=== PATIENT | female | born 1990 ===

== ENCOUNTER 2017-01-27 17:13 | Emergency (ER) | payer OTHER ==
[2017-01-27 17:31] VITALS: RESP 18
[2017-01-27] MEDS ORDERED: Sodium Chloride 0.9% 1,000 ML IV ONE (17:38)
--- NOTE | 2017-01-27 17:40 | C.PDOC ---
History Of Present Illness 26 yo female, presents with right flank pain she has "had for several months". pt was seen in er, had a non obstucted renal stone on ct. pt states she has had persistent pain. no fevers, no hematuria, no vb, no other complaints. Time Seen by Provider: 01/27/17 17:33 Chief Complaint (Nursing): Back Pain Past Medical History Reviewed: Historical Data, Nursing Documentation, Vital Signs Vital Signs: Last Vital Signs Temp 98.4 F 01/27/17 20:02 Pulse 81 01/27/17 20:02 Resp 18 01/27/17 20:02 BP 97/56 L 01/27/17 20:02 Pulse Ox 95 01/27/17 20:20 - Medical History PMH: Kidney Stones Family History: States: Unknown Family Hx - Social History Hx Alcohol Use: No Hx Substance Use: No - Immunization History Hx Tetanus Toxoid Vaccination: No Hx Influenza Vaccination: No Hx Pneumococcal Vaccination: No Review Of Systems Gastrointestinal: Positive for: Abdominal Pain Physical Exam - Physical Exam Appears: Well, No Acute Distress Skin: Normal Color, Warm, Dry Eye(s): bilateral: Normal Inspection, PERRL, EOMI Nose: Normal Throat: Normal Neck: Normal Cardiovascular: Rhythm Regular Respiratory: Normal Breath Sounds Gastrointestinal/Abdominal: Normal Exam, Soft, Tenderness ((+)mild right flank) , No Guarding, No Rebound Back: Normal Inspection Extremity: Normal ROM ED Course And Treatment - Laboratory Results Result Diagrams: 01/27/17 18:01 01/27/17 18:01 O2 Sat by Pulse Oximetry: 95 Medical Decision Making Medical Decision Making: EXAM: CT Abdomen and Pelvis Without Intravenous Contrast CLINICAL HISTORY: 26 years old, female; Pain; Abdominal pain; Flank; Right lower quadrant (rlq); Additional info: Right flank pain TECHNIQUE: Axial computed tomography images of the abdomen and pelvis without intravenous contrast. This CT exam was performed using one or more of the following dose reduction techniques: automated exposure control, adjustment of the mA and/or kV according to patient size, and/ or use of iterative reconstruction technique. Coronal and sagittal reformatted images were created and reviewed. COMPARISON: No relevant prior studies available. FINDINGS: Lower thorax: Bilateral breast implants in place. ABDOMEN: Liver: Unremarkable. No suspicious lesions are seen. Gallbladder and bile ducts: Unremarkable. No calcified stones. No ductal dilation. No significant wall thickening. Pancreas: Unremarkable. No ductal dilation. Spleen: Unremarkable. No splenomegaly. Adrenals: Unremarkable. No mass. Kidneys and ureters: Bilateral nonobstructing renal stones. Mild pelvocaliectasis of the right kidney without definite obstructing calculus. The right distal ureter is not well seen. KENZIE HERMOSILLO | Preliminary Radiology Report SUPPLIER QUALITY MANAGER (QA) DISCREPANCY? If there is a discrepancy between the preliminary and final interpretation, please notify [facility] via [email or web address]. If you do not have access to our QA portal, call our QA team at [phone] CONFIDENTIALITY STATEMENT This report is intended only for the use of the referring physician, and only in accordance with law, If you received this in error, call [phone] Page 2 of 2 Stomach and bowel: CT bowel toMotion artifact does moderately limit the sensitivity of this examination. Moderate amount of formed fecal material is seen within the large bowel loops which may be associated with constipation. No mucosal thickening. Appendix: A normal appendix is identified. PELVIS: Bladder: Unremarkable. No stones. Reproductive: Bilateral prominent ovaries containing small follicles without masses. The uterus is normal. ABDOMEN and PELVIS: Intraperitoneal space: Unremarkable. No free air. No significant fluid collection. Bones/joints: No acute fracture. No dislocation. Soft tissues: Numerous partially calcific nodular densities consistent injection granulomas in the buttocks. Vasculature: Unremarkable. No abdominal aortic aneurysm. Lymph nodes: Unremarkable. No enlarged lymph nodes. IMPRESSION: Bilateral nephrolithiasis without a definite obstructing stone. Mild right pelvocaliectasis and prominence of the right proximal ureter, which is either physiologic, or related to a recently passed stone. No left and stone in the visualized right ureter or in the bladder. No evidence for bowel herniation, bowel obstruction, colitis, appendicitis or diverticulitis. 800: discussed results in detail with patient. no e/o of obstructing stone. advsed pt to f/u oupt with urology. spoke using supervisor matrix. pt states pain improved. advise outpt f/u and return precautions. Disposition - Disposition Referrals: [facility] [Outside] [facility] [Outside] Tee Thomason MD [Staff Provider] - Disposition: HOME/ ROUTINE Disposition Time: 08:00 Condition: STABLE Additional Instructions: please see specialist. reutnr ot er with worsening symptoms or concerns. please follow up in clinic. Prescriptions: Ibuprofen [Motrin Tab] 600 mg PO Q6 PRN #20 tab PRN Reason: Pain, Mild (1-3) Tamsulosin [Flomax] 0.4 mg PO DAILY #10 cap Instructions: Kidney Stones (ED), Flank Pain (ED) Print Language: WOLOF - Clinical Impression Clinical Impression: Flank pain, Kidney stone
[2017-01-27 18:07] LABS: BASO % 0.6 % (0.0-2.0); EOS # 0.1 K/uL (0.0-0.7); EOS % 0.8 % (0.0-4.0); HEMOGLOBIN 13.2 g/dL (11.0-16.0); LYMPH # 1.7 K/uL (1.0-4.3); LYMPH % 24.7 % (20.0-40.0); MEAN CELL VOLUME 93.1 fL (81.0-99.0); MEAN CORPUSCULAR HEMOGLOBIN 31.2 pg (27.0-31.0); MEAN CORPUSCULAR HGB CONC 33.5 g/dL (33.0-37.0); MEAN PLATELET VOLUME 8.5 fL (7.2-11.7); MONO # 0.4 K/uL (0.0-0.8); MONO % 5.2 % (0.0-10.0); NEUT # 4.7 K/uL (1.8-7.0); NEUT % 68.7 % (50.0-75.0); RBC 4.25 Mil/uL (3.80-5.20); RED CELL DISTRIBUTION WIDTH 12.9 % (11.5-14.5); WHITE BLOOD COUNT 6.8 K/uL (4.8-10.8)
[2017-01-27 18:16] LABS: ALBUMIN 3.9 g/dL (3.5-5.0); PROTHROMBIN TIME 11.7 SECONDS (9.7-12.2)
[2017-01-27 18:19] LABS: AST/SGOT 25 U/L (14-36); GFR AFRICAN-AMERICAN > 60; GFR NON-AFRICAN AMERICAN > 60
[2017-01-27 18:20] LABS: ALB/GLOB RATIO 1.2 (1.0-2.1); ALT/SGPT 25 U/L (9-52); BLOOD UREA NITROGEN 13 mg/dL (7-17); CALCIUM 9.1 mg/dl (8.6-10.4); LIPASE 88 U/L (23-300)
[2017-01-27 18:42] LABS: HCG,QUALITATIVE URINE NEGATIVE (NEGATIVE)
[2017-01-27 18:43] LABS: SQUAMOUS EPITHIAL 6 /hpf (0-5); URINE BILIRUBIN NEGATIVE (NEGATIVE); URINE CLARITY Clear (Clear); URINE COLOR Yellow (YELLOW); URINE GLUCOSE (UA) NORMAL (Normal); URINE LEUKOCYTE ESTERASE NEG Leu/uL (Negative); URINE NITRATE NEGATIVE (NEGATIVE); URINE PROTEIN NEGATIVE (NEGATIVE); URINE UROBILINOGEN NORMAL mg/dL (0.2-1.0)
[2017-01-27 19:06] LABS: URINE BLOOD SMALL (NEGATIVE)
[2017-01-27 20:03] VITALS: BP 97/56; PULSE 81; TEMP 98.4
[2017-01-27 20:20] VITALS: O2SAT 95
--- NOTE | 2017-01-28 08:07 | CT ---
PROCEDURE: CT Abdomen and Pelvis without intravenous contrast HISTORY: right flank pain COMPARISON: None. TECHNIQUE: Multiple contiguous axial images were performed through the abdomen and pelvis without the use of intravenous contrast. Subsequently, sagittal and coronal reformatted images were obtained. Radiation dose: Total exam DLP = 286 mGy-cm. This CT exam was performed using one or more of the following dose reduction techniques: Automated exposure control, adjustment of the mA and/or kV according to patient size, and/or use of iterative reconstruction technique. FINDINGS: LOWER THORAX: Bilateral breast implants in place. Small calcified granuloma at the left lung base. LIVER: Unremarkable. No gross lesion or ductal dilatation. GALLBLADDER AND BILE DUCTS: Unremarkable. PANCREAS: Unremarkable. No gross lesion or ductal dilatation. SPLEEN: Unremarkable. ADRENALS: Unremarkable. No mass. KIDNEYS AND URETERS: Bilateral renal calculi. For example in the upper pole of the right kidney there is a 3 millimeter calculus and in the lower pole of the right kidney there is an additional 4 millimeter lower pole calculus. Mild pelvocaliectasis of the right kidney without definite obstructing calculus. Right distal ureter is not well seen. VASCULATURE: Unremarkable. No aortic aneurysm. BOWEL: Motion artifact limits evaluation of the bowel. Moderate fecal retention in the colon within the large bowel loops which may represent constipation. APPENDIX: Unremarkable. Normal appendix. PERITONEUM: Unremarkable. No free fluid. No free air. LYMPH NODES: Unremarkable. No enlarged lymph nodes. BLADDER: Unremarkable. REPRODUCTIVE: Prominence of the bilateral adnexa. BONES: No acute fracture. OTHER FINDINGS: Numerous partially calcific nodular densities suggestive for injection granulomas in the buttocks. IMPRESSION: Bilateral nephrolithiasis. Mild right renal pelvocaliectasis and prominence of the right proximal ureter which is either physiologic or related to a recently passed calculus. Fecal retention in the colon suggestive for constipation. These findings were preliminarily reported at 7:45 p.m. on 01/27/[address] Tim Diaz from [employer].
== END 2017-01-27 20:03 | disposition home or self-care (01) ==
LOC: C.ER 17:13
DX: N20.0 Calculus of kidney (principal)
CPT/HCPCS: 74176; 80053; 81001; 83690; 84703; 85025; 85610; 85730; 96360; 99283; J7040

== ENCOUNTER 2017-05-18 08:42 | Day surgery (SDC) | payer OTHER ==
[2017-05-18 09:00] VITALS: BMI 22.6
[2017-05-18] MEDS ORDERED: cefTRIAXone IV 1 gm in Dextros 50 ML IVPB ONE (10:10)
[2017-05-18] MEDS ORDERED: Lactated Ringer's 1,000 ML IV ONE ×2 (11:15→11:44)
[2017-05-18] MEDS ORDERED: Midazolam 2 MG/2 ML VIAL ONE (11:18)
[2017-05-18] MEDS ORDERED: Propofol 10 mg/ml Inj (20 ML) ONE (11:18)
[2017-05-18] MEDS ORDERED: HYDROmorphone 0.5 mg/0.5 ml ISec IVP PRN (11:47)
[2017-05-18 12:11] VITALS: O2SAT 100
[2017-05-18] MEDS ORDERED: Gentamicin 80 mg in 0.9% NS 80 MG/100 ML BAG IVPB SCH (12:30)
[2017-05-18 13:30] VITALS: BP 123/70; PULSE 69; RESP 18; TEMP 97
--- NOTE | 2017-05-18 17:08 | RAD ---
PROCEDURE: HISTORY: COMPARISON: TECHNIQUE: Total fluoroscopic time utilized during the procedure: 17 seconds. Total dose 0.99567 mGy cm squared FINDINGS: Submitted images from the current procedure: 7 Please refer to the physician's notes performing the procedure. IMPRESSION: Less than 1 hour fluoroscopic time utilized during performance of the procedure
--- NOTE | 2017-05-18 23:47 | OP ---
UROLOGY OPERATIVE REPORT PROCEDURE DATE: 05/18/2017 PREOPERATIVE DIAGNOSES: Urolithiasis; hematuria; flank pain, intermittent; and renal colic. POSTOPERATIVE DIAGNOSES: Urolithiasis; hematuria; flank pain, intermittent; renal colic; and possible cystitis. PROCEDURES: Exam under anesthesia, cystoscopy, right retrograde pyelogram, right double-J stent insertion. ESTIMATED BLOOD LOSS: Less than 10 mL. COMPLICATIONS: No complications. Left double-J stent in. FINDINGS: Normal meatus. I think the bladder mucosa is fairly erythematous, almost as if there is an infection, cystitis. The ureteral orifice was somewhat tight. I do not see any ureteral stones. I do not see major hydronephrosis and I do not really even see the stone on the x-ray (it could be uric acid or just could be not well seen.) I will say that I have a CAT scan up on the board while I am looking and it is a 3 mm stone in the lower pole from 01/27/2017. INDICATION FOR PROCEDURE: See the history and physical for further details. We discussed options with the patient and she is here now for the above procedure, felt more comfortable to put a stent and we will come back and do ureteroscopy where we can inspect the calyces more carefully. DESCRIPTION OF PROCEDURE: After obtaining informed consent, the patient was placed on the table. Routine monitors were placed. Time-out was called. We confirmed the patient and positioning. Cystoscope via the urethra, urethral orifice was identified and retrograde pyelogram was performed. I do not see any specific abnormality at the orifice. It was a little difficult to cannulate with the *------* otherwise is unremarkable. Retrograde pyelogram does not show any major stone disease. We inserted a wire up to the kidney and then we inserted the double-J stent in and confirmed its positioning with fluoroscopic imaging. Overall, the patient tolerated this procedure well without complication. ADDENDUM: My plan will be to recommend the patient to take antibiotics to see how she does clinically and then we are going to plan for ureteroscopy and if there is a stone, laser lithotripsy will even shake the stones in the calyces. Jl Thomason MD
--- NOTE | 2017-05-19 00:35 | HP ---
UROLOGY ADMISSION HISTORY AND PHYSICAL REASON FOR ADMISSION: Treatment of kidney stones. HISTORY OF PRESENT ILLNESS: A very pleasant lady, who presents with renal colic intermittently. She has had it on and off since 01/2017. She states that she passes some stones and she feels better. Some days are better than worse others. She feels like she also has a burning in the urine, so she may also have urinary tract infection. We discussed options including observation and she is here now for cysto-retrograde, possible ureteroscopy and further plan at the end but we only did a cysto-retrograde and stent. PAST MEDICAL AND SURGICAL HISTORY: As listed, essentially negative. MEDICATIONS: None, essentially analgesics. SOCIAL HISTORY: She is not working, nonsmoker. PHYSICAL EXAMINATION: GENERAL: Well-nourished female, in no apparent distress. VITAL SIGNS: Within ten limits. LUNGS: Clear. ABDOMEN: Overall soft, nontender. No flank tenderness appreciated. PELVIC: No pelvic or rectal masses. LABORATORY DATA: See chart. DIAGNOSES: Urolithiasis, hematuria, and intermittent flank pain. We discussed options including medical therapy, including cystoscopy, including uteroscopy, including ESWL. She has a 3-mm stone in her kidney that goes back to 01/27/2017, but she says she is intermittently passing something and some days are worse than other and she wants further testing. So, we discussed on doing assisted retrograde and a stent today, possibly uteroscopy depending what we find clinically. PLAN: Antibiotics prophylaxis and cystoscopy and then further plans will follow. ADDENDUM: In the operative report, we did a cysto and stent insertion. The ureteral orifice was somewhat tight and I am just going to see if this relieves the pain plus also I will be doing the procedure, bladder was somewhat erythematous. Further plans will follow when we find how she does clinically. Jl Thomason MD
== END 2017-05-18 15:30 | disposition home or self-care (01) ==
LOC: C.SDS 08:42
PROVIDERS: ATTEND Urology
DX: N20.9 Urinary calculus, unspecified (principal)
CPT/HCPCS: 52005; 52332; 76000; J0696; J1170; J1580; J7120

== ENCOUNTER 2017-05-23 08:45 | Day surgery (SDC) | payer OTHER ==
[2017-05-22 12:59] VITALS: BMI 19.2
[2017-05-23] MEDS ORDERED: Lactated Ringer's 1,000 ML IV ONE (12:28)
[2017-05-23] MEDS ORDERED: Iohexol 240 (50 ml) ONE (12:32)
[2017-05-23] MEDS ORDERED: Lidocaine 2% Jelly (Uro-Jet) ONE (12:32)
[2017-05-23] MEDS ORDERED: ceFAZolin IV 1 gm in Dextrose 1 GM/50 ML BAG IVPB ONE (12:37)
[2017-05-23] MEDS ORDERED: HYDROmorphone 0.5 mg/0.5 ml ISec IVP PRN (13:14)
[2017-05-23] MEDS ORDERED: Lactated Ringer's 1,000 ML IV SCH (13:15)
[2017-05-23 13:57] VITALS: O2SAT 100
[2017-05-23] MEDS ORDERED: Lactated Ringer's 500 ML IV ONE (14:08)
--- NOTE | 2017-05-23 15:44 | RAD ---
PROCEDURE: HISTORY: COMPARISON: TECHNIQUE: Total fluoroscopic time utilized during the procedure: 11.8 seconds. Total dose 0.92051 mGy cm squared FINDINGS: Submitted images from the current procedure: 4 Please refer to the physician's notes performing the procedure. IMPRESSION: Less than 1 hour fluoroscopic time utilized during performance of the procedure
[2017-05-23 16:54] VITALS: BP 100/80; PULSE 65; RESP 18; TEMP 97
--- NOTE | 2017-06-05 10:07 | OP ---
PROCEDURE DATE: 05/23/2017 PREOPERATIVE DIAGNOSES: , hematuria, and intermittent flank pain. POSTOPERATIVE DIAGNOSES: , hematuria, and intermittent flank pain. PROCEDURES: Cystoscopy, right retrograde pyelogram, and right ureteroscopy. SURGEON: Jl Thomason MD ESTIMATED BLOOD LOSS: Less than 10 mL. COMPLICATIONS: There were no complications. INDICATIONS: See history and physical for details. See also the admission history and physical and the previous note. The patient previously had a stent inserted. Ureteroscopy and laser lithotripsy. FINDINGS: Normal bladder mucosa, possible erythema consistent with UTI. There is no definite stones identified between the kidney and the bladder. I do want to mention that the patient had a stone up in the kidney previously (previous imaging) a few months ago, which she said she does not think she passed yet. We could not find a stone today or previously. Today, we did a cystoscopy, ureteroscopy, venostomy, and retrograde pyelogram. We were able to enter into each calyx. I could not see any stones. DESCRIPTION OF PROCEDURE: After obtaining informed consent, the patient was placed on the table. Routine monitors were placed. Time-out was called. We confirmed the patient and positioning. Cystoscope via the urethra, the old stent was removed, put a wire up to the kidney, put a second wire in. Put a double J. We used a flexible ureteroscope, we went around carefully inspecting the calyces. Using fluro guiding retrograde. There were no definite abscess or stones seen. The patient overall tolerated the procedure without complications. ADDENDUM: Though I saw the patient because she is having intermittent pain, we put a stent in to see if this will relive her. It did not relieve, the stent did not really give much relief, so we came back today to see if she can find the stones to treat. I explained to the patient may be she may be passing intermittent stones and needs further evaluation. Further plans will follow. We will see how she does clinically, but for today, we were not able to find any stones. Jl Thomason MD
== END 2017-05-23 16:55 | disposition home or self-care (01) ==
LOC: C.SDS 08:45
PROVIDERS: ATTEND Urology
DX: N39.0 Urinary tract infection, site not specified (principal); R31.9 Hematuria, unspecified
CPT/HCPCS: 52351; C1758; C1769; J0690; J1580; J1885; J7120; Q9966